=== PATIENT | female | born 1965 ===

== ENCOUNTER 2022-10-07 16:16 | Emergency (ER) | payer OTHER ==
[~2022-10-07] VITALS: Ht 175.3 cm; Wt 86.2 kg
[2022-10-07 16:47] VITALS: BP 119/94
[2022-10-07] MEDS ORDERED: CEPH-585 PO (18:12)
[2022-10-07] MEDS ORDERED: IBUP-1986 PO (18:12)
[2022-10-07] MEDS ORDERED: TETanus/Pertussis (Acell)/Diphther VAC/PF (Tdap-Adult) 0.5ml syringe IMVAC ONE (18:15)
[2022-10-07] MEDS ORDERED: ibuprofen tablet 400 MG TABLET PO ONE (18:15)
== END 2022-10-07 21:14 | disposition left against medical advice (07) ==
LOC: ER 16:17
DX: S01.01XA Laceration without foreign body of scalp, initial encounter (principal); Z72.89 Other problems related to lifestyle; Z79.899 Other long term (current) drug therapy; Z56.0 Unemployment, unspecified; W18.39XA Other fall on same level, initial encounter; Y93.89 Activity, other specified; Y92.89 Other specified places as the place of occurrence of the external cause; Y99.8 Other external cause status
CPT/HCPCS: 12002; 99283; A6449